=== PATIENT | female | born 1940 | race Caucasian/White ===

== ENCOUNTER 2021-02-22 14:16 | Emergency (ER) | payer MEDICARE, BC ==
[~2021-02-22] VITALS: Ht 160 cm; Wt 83.5 kg
[2021-02-22] MEDS ORDERED: GLIPIZIDE 10 MG10 MG PO (14:38)
[2021-02-22] MEDS ORDERED: LANTUS100 UNIT/M SUBQ (14:38)
[2021-02-22] MEDS ORDERED: OMEPRAZOLE20 M3 PO (14:38)
[2021-02-22] MEDS ORDERED: MELATONIN1 M2 PO (14:39)
[2021-02-22] MEDS ORDERED: NEURONTIN100 MG PO (14:39)
[2021-02-22] MEDS ORDERED: LIPITOR40 MG PO (14:39)
[2021-02-22] MEDS ORDERED: PROAIR HFA8.5 GM INH (14:39)
[2021-02-22] MEDS ORDERED: BACTRIM 400-801 EACH PO (14:40)
[2021-02-22 15:37] VITALS: BP 148/57
== END 2021-02-22 15:38 | disposition home or self-care (01) ==
LOC: M.ERS 14:16
DX: L02.212 Cutaneous abscess of back [any part, except buttock and flank] (principal); I10 Essential (primary) hypertension; E11.9 Type 2 diabetes mellitus without complications; E78.00 Pure hypercholesterolemia, unspecified; Z79.899 Other long term (current) drug therapy